=== PATIENT | female | born 1940 | race Caucasian/White ===

== ENCOUNTER → 2018-05-03 | Outpatient (CLI) | payer OTHER | LOC: BRMIMAGING 13:44 | PROVIDERS: ATTEND Internal Medicine | DX: Z12.31 Encounter for screening mammogram for malignant neoplasm of breast (principal); Z13.820 Encounter for screening for osteoporosis; M85.89 Other specified disorders of bone density and structure, multiple sites; E78.5 Hyperlipidemia, unspecified; F33.1 Major depressive disorder, recurrent, moderate; F41.1 Generalized anxiety disorder; Z78.0 Asymptomatic menopausal state ==

== ENCOUNTER 2018-12-23 12:09 | Day surgery (SDC) | payer OTHER ==
[2018-12-23] MEDS ORDERED: IPRATROPIUM/ALBUTEROL 3 ML DEYVIAL IH ONE (12:22)
--- NOTE | 2018-12-23 12:54 | EDPHY ---
H & P Time Seen by Provider: 12/23/18 12:15 HPI/ROS: CHIEF COMPLAINT: "I aspirated something" HISTORY OF PRESENT ILLNESS: Patient states she was eating lunch around 11 30 this morning and aspirated a piece of salad. She thinks it is a car bundle being. Initially she thought she choked on some black pepper as she has occasional choking episodes but this "felt different". She did have some coughing and felt pain on the right side of her chest. Pain was worse with deep breath. She felt and heard wheezing as well. She looked on the Internet and read about aspiration and came in for evaluation. She is able to talk. She was able to drink some christine brandon after the aspiration event. She denies nausea, vomiting, other chest pain. She has had no fevers or chills. REVIEW OF SYSTEMS: Constitutional: No fever, no chills. Eyes: No discharge. ENT: No sore throat. Cardiovascular: Per HPI. No recent dyspnea on exertion. Respiratory: Per HPI Gastrointestinal: No abdominal pain, no vomiting. Genitourinary: No dysuria. Musculoskeletal: No back pain. Skin: No rashes. Neurological: No headache. General Appearance: Alert, [id number] distress. Eyes: Pupils equal and round no pallor or injection. ENT, Mouth: Mucous membranes moist. Respiratory: Initially tachypneic, audible wheezes, wheezes auscultated on the right, clear on left. Cardiovascular: Regular rate and rhythm. Gastrointestinal: Abdomen is soft and nontender, no masses, bowel sounds normal. Neurological: Awake, alert, cranial nerves intact, no focal neurologic deficits. Skin: Warm and dry, no rashes. Musculoskeletal: Neck is supple nontender. Extremities are symmetrical, full range of motion, no edema. Psychiatric: Patient is oriented X 3, anxious on arrival. Medical/surgical history: High cholesterol, depression, macular degeneration, surgeries include cholecystectomy, hysterectomy, knee arthroscopy. Social history: Previous heavy smoker, none for greater than 20 years. Social EtOH. No drugs. Smoking Status: Former smoker Constitutional: Initial Vital Signs Temperature (C) 36.4 C 12/23/18 12:15 Heart Rate 78 12/23/18 12:15 Respiratory Rate 18 12/23/18 12:15 Blood Pressure 159/84 H 12/23/18 12:15 O2 Sat (%) 95 12/23/18 12:15 O2 Delivery Mode Room Air O2 (L/minute) 2 Allergies/Adverse Reactions: No Known Allergies Allergy (Unverified 12/23/18 12:14) Home Medications: Medication Instructions Recorded Aspirin 81mg (*) 12/23/18 Atorvastatin Calcium 12/23/18 Ocuvite 12/23/18 Sertraline HCl 12/23/18 Vitamin D3 12/23/18 Medical Decision Making - Diagnostics Imaging Results: Imaging Impressions Chest X-Ray 12/23/18 12:23 Impression: Exacerbation of airways disease. No pneumonia. Chest CT 12/23/18 13:39 Impression: 1. Foreign body in the right lower lobe bronchus, likely a garbanzo wasserman. 2. No post obstructive atelectasis or edema. 3. Minimal early interstitial lung disease in the lower lung zones. Findings discussed with Emergency Department physician, Dr. Mary Marques on December 23, 2018 at 1420 hours. Imaging: Discussed imaging studies w/ housecalls nurse Radiologist ED Course/Re-evaluation: Saw patient on arrival, moderate distress, auditory wheezes. O2 sat 95% on room air. Given DuoNeb, O2 sat 100% during treatment, re-evaluation after DuoNeb decreased wheezing but still present. Review chest x-ray, essentially normal. Patient noted to be mildly hypoxic 90- 92% on room air. Discussed with pulmonology, Dr. Palafox, at 1:[address] scan. Patient continues mild hypoxia now 88-90%, nasal cannula applied. CT results shows likely garbanzo wasserman in the origin of the right lower lobe bronchus, discussed with Dr. Sullivan. Also called by Dr. Asencio, radiology with report. Differential Diagnosis: Differential diagnosis includes but is not limited to foreign body aspiration, pneumonitis, reactive airways disease, pneumonia. After evaluation patient found to have foreign body in the origin of the right lower lobe bronchus with mild hypoxia. No signs of infectious process at this time. Discussed several times with pulmonology and plan is for transport to [facility] to the endoscopy suite for emergent bronchoscopy. - Data Points Laboratory Results: 12/23/18 12:34 POC Sodium 141 mEq/L mEq/L (135-145) POC Potassium 4.5 mEq/L mEq/L (3.3-5.0) POC Chloride 102.0 mEq/L mEq/L (97-110) POC Total CO2 30 mEq/L mEq/L (22-31) POC BUN 18 mg/dL mg/dL (7-23) POC Creatinine 0.7 mg/dL mg/dL (0.6-1.0) POC Glucose 107 mg/dL H mg/dL (70-100) POC Calcium 9.7 mg/dL mg/dL (8.5-10.4) Medications Given: Discontinued Medications Albuterol/Ipratropium (Duoneb) 3 ml IH EDNOW ONE Stop: 12/23/18 12:23 Last Admin: 12/23/18 12:27 Dose: 3 ml Point of Care Test Results: CBC CBC Collection Date 12/23/18 CBC Collection Time 12:28 WBC 5.83 RBC 4.51 HGB 16.1 HCT 46.2 PLT 182 Neut # 3.11 Neut 53.3 LYMPH # 1.64 LYMPH 28.1 MCV 102.4 Chemistry 12/23/18 12:34 POC Sodium 141 mEq/L mEq/L (135-145) POC Potassium 4.5 mEq/L mEq/L (3.3-5.0) POC Chloride 102.0 mEq/L mEq/L (97-110) POC Total CO2 30 mEq/L mEq/L (22-31) POC BUN 18 mg/dL mg/dL (7-23) POC Creatinine 0.7 mg/dL mg/dL (0.6-1.0) POC Glucose 107 mg/dL H mg/dL (70-100) POC Calcium 9.7 mg/dL mg/dL (8.5-10.4) Departure - Departure Disposition: To OP Cath/Surgery Clinical Impression: History of foreign body aspiration, Hypoxia Referrals: Lorene Yu MD [Primary Care Provider] - As per Instructions
[2018-12-23] MEDS ORDERED: EPINEPHrine 1 MG/ML INJ ONE (15:48)
[2018-12-23] MEDS ORDERED: fentaNYL 100 MCG/2 ML INJ ONE (15:49)
[2018-12-23] MEDS ORDERED: MIDAZOLAM 2 MG/2 ML VIAL ONE (15:49)
[2018-12-23] MEDS ORDERED: ALBUTEROL 3 ML DEYVIAL ONE (15:49)
[2018-12-23] MEDS ORDERED: NS 500 ML IV ONE (15:56)
[2018-12-23] MEDS ORDERED: ALBUTEROL 3 ML DEYVIAL IH ONE (15:56)
[2018-12-23] MEDS ORDERED: LIDOCAINE 2% JELLY 6 ML TOPICAL SYR TP ONE (16:00)
[2018-12-23] MEDS ORDERED: LIDOCAINE 1% 300 MG/30 ML SDV ONE (16:05)
--- NOTE | 2018-12-23 16:28 | PDGENHP ---
History and Physical - Chief Complaint choke on garbanzo wasserman - History of Present Illness 78 healthy female who presented to urgent care after choking on salad and states she aspirated a garbazano wasserman. She was seen [facility] and had unilateral wheezing and hypoxemic resp failure. CT chest confirmed garbanzo wasserman. No fevers , chills, nausea, vomiting, chest pain, leg swelling. no DM, no CAD, no h/o CVA. ECOG 1 History Information - Allergies/Home Medication List Allergies/Adverse Reactions: No Known Allergies Allergy (Unverified 12/23/18 12:14) Home Medications: Aspirin 81mg (*) 12/23/18 [Last Taken 12/23/18 07:00] Atorvastatin Calcium 12/23/18 [Last Taken 12/22/18] Ocuvite 12/23/18 [Last Taken 12/23/18 07:00] Sertraline HCl 12/23/18 [Last Taken 12/23/18 07:00] Vitamin D3 12/23/18 [Last Taken 12/23/18 07:00] I have personally reviewed and updated: family history, medical history, social history, surgical history - Past Medical History Additional medical history: anxiety - Family History Additional family history: no h/o garbanzo wasesrman aspiration - Social History Smoking Status: Former smoker Alcohol Use: None Review of Systems Review of Systems: ROS: 10pt was reviewed & negative except for what was stated in HPI & below Physical Exam Physical Exam: Temp Pulse Resp BP Pulse Ox 36.4 C 78 18 159/84 H 95 12/23/18 15:55 12/23/18 15:55 12/23/18 15:55 12/23/18 15:55 12/23/18 15:55 O2 (L/minute) 2 Constitutional: uncomfortable Eyes: PERRL Ears, Nose, Mouth, Throat: moist mucous membranes, hearing normal Cardiovascular: regular rate and rhythym, no murmur, rub, or gallop Respiratory: expiratory wheeze, other (R sided inspiratory and expiratory wheeze ) Gastrointestinal: normoactive bowel sounds, soft, non-tender abdomen Genitourinary: no bladder fullness, no bladder tenderness Skin: warm, normal color Musculoskeletal: full muscle strength, no muscle tenderness Neurologic: AAOx3, sensation intact bilaterally, No weakness, No numbness Psychiatric: interacting appropriately, anxious Lab Data & Imaging Review POC Sodium 141 mEq/L (135-145) 12/23/18 12:34 POC Potassium 4.5 mEq/L (3.3-5.0) 12/23/18 12:34 POC Chloride 102.0 mEq/L (97-110) 12/23/18 12:34 POC Total CO2 30 mEq/L (22-31) 12/23/18 12:34 POC BUN 18 mg/dL (7-23) 12/23/18 12:34 POC Creatinine 0.7 mg/dL (0.6-1.0) 12/23/18 12:34 POC Glucose 107 mg/dL (70-100) H 12/23/18 12:34 POC Calcium 9.7 mg/dL (8.5-10.4) 12/23/18 12:34 Assessment & Plan Assessment: History of foreign body aspiration (Acute) Hypoxia (Acute)
--- NOTE | 2018-12-23 16:30 | PDPROPOC ---
Sedation Plan of Care Sedation Plan of Care: vital signs stable, mental status noted, patient educated of risks, benefits, alternatives, patient can tolerate sedation ASA Classification: ASA 1 Planned drugs: fentanyl, midazolam Mallampati Score: Class 2 Mallampati Reference Image: Patient passed 3-3-2 rule?: Yes
--- NOTE | 2018-12-23 17:09 | BVPULMO ---
[facility] Surgical Services- Pulmonology Patient Name: Ashley Jauregui Procedure Date: 12/23/2018 4:36 PM Patient Type: Outpatient Attending MD/ER Physician: Ki Palafox MD Procedure: Bronchoscopy with fogein body removal Indications: Bronchus foreign body, Abnormal CT scan of chest, Respiratory toilet, Forgein b blaze removal - garbanzo wasserman Providers: Ki Palafox MD Referring MD: Shelli Medicines: Lidocaine 2% Nebulizer 2.5 mL, Lidocaine 1% applied to cords 6 mL, Oxygen 10 L/ min, Fentanyl 75 mcg IV, Midazolam 4 mg IV Complications: No immediate complications Procedure: After informed consent, a time out was performed. N95 masks were worn, and the procedure was done in a negative pressure room. The patient was given appropria te topical anesthesia and intravenous sedation. The fiberopic bronchoscope was pas sed via a bite block orally into the larynx and subsequently into the lower trachea bronchial tree. Throughout the procedure, the patient's blood pressure, pulse, and oxygen saturations were monitored continuously. The Bronchoscope (Video) was introduced through the and advanced to the. The procedure was accomplished with out difficulty. Moderate Sedation: total moderate sedation time: 20 minutes. Vitals were continously monitored by a dedicate RN as well as MD performing procedure Findings: Respiratory tract: The larynx is normal. The vocal cords appear normal. The subglottic space is normal. The trachea is of normal caliber. The winnie is sha rp. The entire tracheobronchial tree was examined to at least the first subsegmenta l level. Bronchial mucosa and anatomy are normal; there are no endobronchial lesi ons and no secretions, except in the bronchus intermedius. The foreign body was successfully removed using a basket. Post Op Diagnosis: - Bronchus foreign body - Abnormal CT scan of chest - Respiratory toilet - Foreign body removal of sabi wasserman was successful. - The airway examination of the left lung was normal. - Nearly obstructing (greater than 90% obstructed) airway abnormality. Estimated Blood Loss: Estimated blood loss: none. Recommendation: NPO for 2 hours then advance as tolerated. Follow up with Dr Palafox [facility] with CXR at time of visit 2 weeks - Return to normal activities tomorrow. - Follow up in clinic in 2 weeks. Vivienne.Ki REESE Ki Palafox MD 12/23/2018 5:08:28 PM This report has been signed electronicallySamuramin Palafox MD Number of Addenda: 0 Note Initiated On: 12/23/2018 4:36 PM [email or web address]
[2018-12-23 18:30] VITALS: BP 105/62
== END 2018-12-23 17:58 | disposition home or self-care (01) ==
LOC: CED 12:09 → CEDHOLD 14:27 → UNDOADMOB 14:27 → FSGY 14:27 → UNDODISOB 17:58 → FSGY 17:58
PROVIDERS: ATTEND Internal Medicine Pulmonary Disease
PROC: 0BC68ZZ Extirpation of Matter from Right Lower Lobe Bronchus, Via Natural or Artificial Opening Endoscopic (ICD-10-PCS; principal; 2018-12-23 16:30)
DX: T17.528A Food in bronchus causing other injury, initial encounter (principal); J96.01 Acute respiratory failure with hypoxia; J84.9 Interstitial pulmonary disease, unspecified; E78.00 Pure hypercholesterolemia, unspecified; F32.9 Major depressive disorder, single episode, unspecified; Y99.9 Unspecified external cause status; Z90.49 Acquired absence of other specified parts of digestive tract; Z90.710 Acquired absence of both cervix and uterus; Z87.891 Personal history of nicotine dependence
CPT/HCPCS: 71046-PO; 71250-PO; 80048-ER; J0171; J2250; J3010; J7613